=== PATIENT | male | born 1960 | race Caucasian/White ===

== ENCOUNTER → 2019-02-10 | Outpatient (CLI) | payer BC ==
[~2019-02-10] MED LIST: GASTROGRAFIN SOLUTION 30ML (Q9963) As Ordered ONE; ISOVUE-370 76% 100ML VIAL (Q9967) As Ordered ONE
[2019-02-10 15:03] LABS: BLOOD UREA NITROGEN 18 MG/DL (7-18); CREATININE FOR GFR 0.94 MG/DL (0.70-1.30); GLOMERULAR FILTRATION RATE > 60.0 (>56)
--- NOTE | 2019-02-11 07:52 | REP ---
Clinical: Right lower quadrant pain. Evaluate for possible hernia. Technique: Axial contrast enhanced images through the pelvis with coronal and sagittal re-formations using oral and 100 ml Isovue 370 intravenous contrast material. Findings: Evaluation of the visualized enteric system demonstrates sigmoid diverticulosis without acute diverticulitis and no evidence for bowel obstruction. Bladder demonstrates posterior right diverticulum measuring 2.5 cm maximal diameter which may reflect a focally dilated distal right ureter and correlation may be warranted. Prostate/seminal vesicles appear normal. Vasculature appears normal. No ascites. No adenopathy. No free air. There is suggestion for a very early fat containing right inguinal hernia along with few bilateral inguinal lymph nodes. Osseous structures are intact. Surgical clips noted in the bilateral groin suggesting prior bilateral hernia repair. Impression: Very mild early protrusion of the intra-abdominal fat at the level of the right inguinal canal suggest the possibility of early hernia. Evidence for prior bilateral hernia repair. Electronically Signed by Andres Velásquez MD 02/11/2019 07:43 A
== END ==
LOC: M RAD 12:55
PROVIDERS: ATTEND Surgery
DX: R10.31 Right lower quadrant pain (principal); N32.3 Diverticulum of bladder; K57.30 Diverticulosis of large intestine without perforation or abscess without bleeding
CPT/HCPCS: 72193; 82565; 84520; Q9963; Q9967

== ENCOUNTER → 2021-01-25 | Outpatient (CLI) | payer BC, OTHER ==
[~2021-01-25] MED LIST changes: -GASTROGRAFIN SOLUTION 30ML (Q9963) As Ordered ONE; -ISOVUE-370 76% 100ML VIAL (Q9967) As Ordered ONE; +METHACHOLINE KIT (J7674) INH ONE
--- NOTE | 2021-01-25 14:40 | PFTRPT ---
Height: 73.00 Inches Weight: 232.00 Lbs BSA: 2.29 Diagnosis: R05 DATE: 01/25/2021 ORDERED BY: Yumiko Carlson RN, ANP QUALITY: Study of excellent technical quality. PROCEDURE: Under protocol, methacholine was administered. A dose of 2.5 mg or 13.875 CDUs, a 27% decline in the FEV1 was noted. PC of 0.57 is significant. Flow rates did return to baseline post-bronchodilator administration. IMPRESSION: Positive methacholine challenge study. MTDD
== END ==
LOC: M CARPUL 13:49
PROVIDERS: ATTEND Nurse Practitioner Adult Health
DX: R05 Cough (principal)
CPT/HCPCS: 94070; J7674

== ENCOUNTER → 2021-11-19 | Outpatient (CLI) | payer OTHER | LOC: M RAD 14:30 | PROVIDERS: ATTEND Nurse Practitioner Adult Health | DX: Z12.2 Encounter for screening for malignant neoplasm of respiratory organs (principal); Z87.891 Personal history of nicotine dependence; J47.9 Bronchiectasis, uncomplicated; R91.8 Other nonspecific abnormal finding of lung field; J92.9 Pleural plaque without asbestos ==

== ENCOUNTER → 2021-12-24 | Outpatient (CLI) | payer OTHER | LOC: M PLARAD 11:03 | PROVIDERS: ATTEND Nurse Practitioner Adult Health | DX: R91.1 Solitary pulmonary nodule (principal); I65.23 Occlusion and stenosis of bilateral carotid arteries; I67.2 Cerebral atherosclerosis; I70.0 Atherosclerosis of aorta; I25.10 Atherosclerotic heart disease of native coronary artery without angina pectoris; K76.0 Fatty (change of) liver, not elsewhere classified; K57.30 Diverticulosis of large intestine without perforation or abscess without bleeding | CPT/HCPCS: 78815; A9552 ==

== ENCOUNTER → 2023-01-13 | Outpatient (CLI) | payer OTHER | LOC: M RAD 06:19 | PROVIDERS: ATTEND Nurse Practitioner Adult Health | DX: Z12.2 Encounter for screening for malignant neoplasm of respiratory organs (principal); Z87.891 Personal history of nicotine dependence; I70.0 Atherosclerosis of aorta; I25.10 Atherosclerotic heart disease of native coronary artery without angina pectoris; J43.2 Centrilobular emphysema ==

== ENCOUNTER → 2024-04-15 | Outpatient (CLI) | payer OTHER | LOC: M RAD 12:21 | PROVIDERS: ATTEND Nurse Practitioner Adult Health | DX: Z12.2 Encounter for screening for malignant neoplasm of respiratory organs (principal); J47.9 Bronchiectasis, uncomplicated; R91.8 Other nonspecific abnormal finding of lung field; Z87.891 Personal history of nicotine dependence ==

== ENCOUNTER → 2024-10-08 | Outpatient (CLI) | payer OTHER | LOC: M PLARAD 08:17 | PROVIDERS: ATTEND Otolaryngology | DX: H90.3 Sensorineural hearing loss, bilateral (principal) ==